=== PATIENT | female | born 1995 | race Caucasian/White ===

== ENCOUNTER 2017-05-09 09:57 | Emergency (ER) | payer OTHER ==
[2017-05-09 10:53] LABS: BASO % 0.3 % (0.0-1.0); EOS # 0.2 10^3/uL (0.0-0.50); EOS % 2.4 % (0.0-3.0); HEMATOCRIT 38.1 % (36.0-47.0); IMMATURE GRANULOCYTE % 0.3 % (0-0); LYMPH # 1.5 10^3/uL (1.5-6.5); LYMPH % 18.6 % (24.0-44.0); MEAN CORPUSCULAR HEMOGLOBIN 29.6 pg (27.0-33.0); MEAN CORPUSCULAR HGB CONC 34.1 g/dl (32.0-36.5); MEAN CORPUSCULAR VOLUME 86.8 fl (80.0-96.0); MONO # 0.5 10^3/uL (0.0-0.8); MONO % 5.8 % (0.0-5.0); NEUTROPHILS # 5.7 10^3/uL (1.8-7.7); NEUTROPHILS % 72.6 % (36.0-66.0); PLATELET COUNT, AUTOMATED 190 10^3/uL (150-450); RED BLOOD COUNT 4.39 10^6/uL (4.00-5.40); RED CELL DISTRIBUTION WIDTH 12.4 % (11.5-14.5); WHITE BLOOD COUNT 7.8 10^3/uL (4.0-10.0)
[2017-05-09 10:57] LABS: KETONE, URINE AUTO RFX NEGATIVE (NEGATIVE); LEUKOCYTE ESTERASE UR AUTO RFX NEGATIVE (NEGATIVE); MUCUS, URINE RFX SMALL (NEGATIVE); NITRITE, URINE AUTO RFX NEGATIVE (NEGATIVE); RBC, URINE AUTO RFX 1 /HPF (0-3); SPECIFIC GRAVITY UR AUTO RFX 1.021 (1.002-1.035); SQUAM EPITHELIAL CELL UR AURFX 2 /HPF (0-6); WBC, URINE AUTO RFX 1 /HPF (0-3)
[2017-05-09 11:23] LABS: ALKALINE PHOSPHATASE 42 U/L (45-117); ALT/SGPT 21 U/L (12-78); AST/SGOT 14 U/L (7-37); BILIRUBIN,TOTAL 0.5 MG/DL (0.2-1.0); BLOOD UREA NITROGEN 9 MG/DL (7-18); CALCIUM LEVEL 8.7 MG/DL (8.5-10.1); CARBON DIOXIDE LEVEL 25 MEQ/L (21-32); CHLORIDE LEVEL 106 MEQ/L (98-107); CREATININE FOR GFR 0.52 MG/DL (0.55-1.02); GLUCOSE, FASTING 91 MG/DL (70-105); TOTAL PROTEIN 6.8 GM/DL (6.4-8.2)
[2017-05-09 11:53] LABS: HCG, SERUM QUANTITATIVE 96636 MIU/ML
[2017-05-09 12:51] LABS: ALBUMIN 3.6 GM/DL (3.2-5.2); ALBUMIN/GLOBULIN RATIO 1.13 (1.00-1.93); ANION GAP 8 MEQ/L (8-16); SODIUM LEVEL 139 MEQ/L (136-145)
[2017-05-09 15:12] LABS: CHLAMYDIA DNA AMPLIFICATION NEGATIVE (NEGATIVE); GC DNA AMPLIFICATION NEGATIVE (NEGATIVE)
== END 2017-05-09 12:56 | disposition home or self-care (01) ==
LOC: M ED 09:57
DX: O99.89 Other specified diseases and conditions complicating pregnancy, childbirth and the puerperium (principal); R10.9 Unspecified abdominal pain; N93.9 Abnormal uterine and vaginal bleeding, unspecified; Z3A.08 8 weeks gestation of pregnancy; Z87.891 Personal history of nicotine dependence; Z88.0 Allergy status to penicillin
CPT/HCPCS: 76801

== ENCOUNTER 2017-05-24 09:56 | Emergency (ER) | payer OTHER ==
[2017-05-24] MEDS: ACETAMINOPHEN 325 MG TAB PO (10:42)
== END 2017-05-24 11:34 | disposition home or self-care (01) ==
LOC: M ED 09:56
DX: O26.891 Other specified pregnancy related conditions, first trimester (principal); M54.9 Dorsalgia, unspecified; Z3A.11 11 weeks gestation of pregnancy; Z88.0 Allergy status to penicillin
CPT/HCPCS: 76801

== ENCOUNTER 2017-08-07 15:07 | Emergency (ER) | payer OTHER ==
[2017-08-07 15:45] LABS: BASO % 0.1 % (0.0-1.0); EOS # 0.3 10^3/uL (0.0-0.50); EOS % 2.7 % (0.0-3.0); HEMATOCRIT 33.8 % (36.0-47.0); HEMOGLOBIN 11.6 g/dl (12.0-15.5); IMMATURE GRANULOCYTE % 0.3 % (0-3.0); LYMPH # 1.6 10^3/uL (1.5-6.5); LYMPH % 15.4 % (24.0-44.0); MEAN CORPUSCULAR HGB CONC 34.3 g/dl (32.0-36.5); MEAN CORPUSCULAR VOLUME 87.3 fl (80.0-96.0); MONO # 0.8 10^3/uL (0.0-0.8); MONO % 7.8 % (0.0-5.0); NEUTROPHILS # 7.5 10^3/uL (1.8-7.7); NEUTROPHILS % 73.7 % (36.0-66.0); PLATELET COUNT, AUTOMATED 176 10^3/uL (150-450); RED BLOOD COUNT 3.87 10^6/uL (4.00-5.40); WHITE BLOOD COUNT 10.2 10^3/uL (4.0-10.0)
[2017-08-07 15:54] LABS: KETONE, URINE AUTO RFX NEGATIVE (NEGATIVE); LEUKOCYTE ESTERASE UR AUTO RFX NEGATIVE (NEGATIVE); MUCUS, URINE RFX SMALL (NEGATIVE); NITRITE, URINE AUTO RFX NEGATIVE (NEGATIVE); RBC, URINE AUTO RFX 2 /HPF (0-3); SPECIFIC GRAVITY UR AUTO RFX 1.009 (1.002-1.035); SQUAM EPITHELIAL CELL UR AURFX 1 /HPF (0-6); WBC, URINE AUTO RFX 0 /HPF (0-3)
[2017-08-07] MEDS: ONDANSETRON 4 MG ORAL DISINTEGRATING TAB (S0181) PO (16:03)
[2017-08-07 16:09] LABS: ALBUMIN/GLOBULIN RATIO 0.97 (1.00-1.93); ALKALINE PHOSPHATASE 55 U/L (45-117); ALT/SGPT 69 U/L (12-78); ANION GAP 9 MEQ/L (8-16); AST/SGOT 38 U/L (7-37); BILIRUBIN,DIRECT < 0.1 MG/DL (0.0-0.2); BILIRUBIN,TOTAL 0.3 MG/DL (0.2-1.0); BLOOD UREA NITROGEN 8 MG/DL (7-18); CALCIUM LEVEL 8.3 MG/DL (8.5-10.1); CARBON DIOXIDE LEVEL 20 MEQ/L (21-32); CHLORIDE LEVEL 111 MEQ/L (98-107); CREATININE FOR GFR 0.54 MG/DL (0.55-1.30); GLOMERULAR FILTRATION RATE > 60.0 (>60); GLUCOSE, FASTING 84 MG/DL (70-100); LIPASE 204 U/L (73-393); POTASSIUM SERUM 3.9 MEQ/L (3.5-5.1); SODIUM LEVEL 140 MEQ/L (136-145); TOTAL PROTEIN 6.1 GM/DL (6.4-8.2)
[2017-08-07 16:30] LABS: INR 1.05; PROTHROMBIN TIME 13.9 SECONDS (12.4-14.5)
== END 2017-08-07 17:25 | disposition home or self-care (01) ==
LOC: M ED 15:07
DX: O26.892 Other specified pregnancy related conditions, second trimester (principal); R10.9 Unspecified abdominal pain; R11.0 Nausea; Z88.0 Allergy status to penicillin; Z3A.21 21 weeks gestation of pregnancy
CPT/HCPCS: 76857

== ENCOUNTER 2017-10-13 12:15 | Outpatient (CLI) | payer OTHER | END 2017-10-13 14:10 | disposition home or self-care (01) | LOC: M LDO 12:15 | DX: O23.599 Infection of other part of genital tract in pregnancy, unspecified trimester (principal); B37.3 Candidiasis of vulva and vagina; Z3A.31 31 weeks gestation of pregnancy | CPT/HCPCS: 76815 ==

== ENCOUNTER 2017-12-08 07:57 | Inpatient (IN) | payer OTHER ==
[2017-12-08] MEDS: LACTATED RINGER'S 1000 ML IV (08:49)
[2017-12-08 09:21] LABS: HEMATOCRIT 32.5 % (36.0-47.0); HEMOGLOBIN 10.6 g/dl (12.0-15.5); MEAN CORPUSCULAR HEMOGLOBIN 27.8 pg (27.0-33.0); MEAN CORPUSCULAR HGB CONC 32.6 g/dl (32.0-36.5); MEAN CORPUSCULAR VOLUME 85.3 fl (80.0-96.0); PLATELET COUNT, AUTOMATED 134 10^3/uL (150-450); RED BLOOD COUNT 3.81 10^6/uL (4.00-5.40); RED CELL DISTRIBUTION WIDTH 13.8 % (11.5-14.5); WHITE BLOOD COUNT 9.7 10^3/uL (4.0-10.0)
[2017-12-08] MEDS ORDERED: FENTANYL 2MCG/ML ROPIVACAINE 0.2% IN 0.9% NACL 200ML IVBAG As Ordered (09:58)
[2017-12-08] MEDS ORDERED: EPIDURAL COMMENT XX (11:00)
[2017-12-08] MEDS ORDERED: LACTATED RINGER'S 1000 ML IV (11:00)
[2017-12-08] MEDS ORDERED: NALOXONE INJ 0.4 MG/1 ML VIAL (J2310) IV (11:00)
[2017-12-08] MEDS ORDERED: EPIDURAL/PCA KEYS XX (11:00)
[2017-12-08] MEDS ORDERED: diphenhydrAMINE INJ 50MG/ML VIAL (J1200) IV (11:00)
[2017-12-08] MEDS ORDERED: FENTANYL/ROPIVACAINE/NACL BAG 200 ML EPIDURAL (11:00)
[2017-12-08] MEDS ORDERED: ONDANSETRON 4MG/2ML VIAL (J2405) IV (11:00)
[2017-12-08] MEDS ORDERED: ePHEDrine SULFATE 25 MG/5 ML(5MG/ML) SYRINGE IV (11:00)
[2017-12-08] MEDS ORDERED: REFRIGERATOR IV KEYS XX (11:00)
[2017-12-08] MEDS: LR 1,000 ML IV (13:26)
[2017-12-08] MEDS ORDERED: OXYTOCIN 30 UNITS IN 0.9% NaCl 500ML IV BAG (J2590) As Ordered (17:42)
[2017-12-08] MEDS: OXYTOCIN DRIP 30 UNITS in APPROPRIATE DILUENT 1 EA IV (20:18)
[2017-12-08] MEDS: LIDOCAINE 1% MDV 20ML VIAL INFIL (20:30)
[2017-12-08] MEDS ORDERED: RHOGAM 300 MCG (1500 IU) INJ (J2790) IM (20:30)
[2017-12-08] MEDS ORDERED: DOCUSATE SODIUM 100 MG CAP PO (20:30)
[2017-12-08] MEDS ORDERED: MEASLES,MUMPS,RUBELLA VACCINE INJ (MMR-II) (90707) SC (20:30)
[2017-12-08] MEDS: IBUPROFEN 800 MG TAB PO (20:55)
[2017-12-08] MEDS: ACETAMINOPHEN 500 MG TAB PO (23:49)
[2017-12-09] MEDS: DIBUCAINE 1% OINTMENT 30GM TOP (07:59)
[2017-12-09] MEDS: PRENATAL VITAMINS CHEWABLE TABLET PO (07:59)
[2017-12-09] MEDS: IBUPROFEN 800 MG TAB PO ×2 (08:01→15:53)
[2017-12-10] MEDS: IBUPROFEN 800 MG TAB PO (06:27)
[2017-12-10] MEDS: PRENATAL VITAMINS CHEWABLE TABLET PO (10:19)
== END 2017-12-10 13:30 | disposition home or self-care (01) | DRG 775 ==
LOC: M LDO 07:57 → M OBS 22:35 → M LDI 08:32
PROVIDERS: Obstetrics & Gynecology
PROC: 10E0XZZ Delivery of Products of Conception, External Approach (ICD-10-PCS; principal; 2017-12-08)
PROC: 0KQM0ZZ Repair Perineum Muscle, Open Approach (ICD-10-PCS; 2017-12-08)
PROC: 0HQ9XZZ Repair Perineum Skin, External Approach (ICD-10-PCS; 2017-12-08)
PROC: 10907ZC Drainage of Amniotic Fluid, Therapeutic from Products of Conception, Via Natural or Artificial Opening (ICD-10-PCS; 2017-12-08)
DX: O70.1 Second degree perineal laceration during delivery (principal); O70.0 First degree perineal laceration during delivery; Z3A.39 39 weeks gestation of pregnancy; Z37.0 Single live birth